=== PATIENT | female | born 1995 | race Caucasian/White ===

== ENCOUNTER 2016-09-10 11:11 | Emergency (ER) | payer OTHER | END 2016-09-10 12:16 | disposition home or self-care (01) | LOC: FER 11:11 | DX: S93.401A Sprain of unspecified ligament of right ankle, initial encounter (principal); Z88.6 Allergy status to analgesic agent; Z91.040 Latex allergy status; W17.2XXA Fall into hole, initial encounter; Y92.009 Unspecified place in unspecified non-institutional (private) residence as the place of occurrence of the external cause | CPT/HCPCS: 73610; 73630; 99283 ==

== ENCOUNTER 2020-06-10 09:51 | Emergency (ER) | payer OTHER ==
[~2020-06-10 09:51] MED LIST: BACTRIM DS TAB1 EACH PO; BLISOVI 24 FE1 EACH PO; ERYTHROMYCIN250 M1 PO; PREDNISONE 20MG20 MG PO; TAMIFLU 75MG CA75 MG PO
== END 2020-06-10 11:10 | disposition home or self-care (01) ==
LOC: FER 09:51
DX: U07.1 COVID-19 (principal)
CPT/HCPCS: 99283; U0002

== ENCOUNTER 2022-01-12 16:25 | Emergency (ER) | payer SELFPAY ==
[2022-01-12 17:40] LABS: CLARITY CLEAR (CLEAR); COLOR YELLOW (YELLOW); SPECIFIC GRAVITY 1.025 (1.001-1.030)
[2022-01-12 17:41] LABS: BILIRUBIN NEGATIVE (NEGATIVE); BLOOD NEGATIVE Ery/uL (NEGATIVE); GLUCOSE (U) NORMAL (NORMAL); LEUKOCYTES NEGATIVE Leu/uL (NEGATIVE); NITRITE NEGATIVE (NEGATIVE); PROTEIN NEGATIVE (NEGATIVE); pH 6.5 (5.0-9.0)
== END 2022-01-12 18:42 | disposition home or self-care (01) ==
LOC: FER 16:25
PROVIDERS: Emergency Medicine
DX: N94.6 Dysmenorrhea, unspecified (principal); Z28.310 Unvaccinated for COVID-19; Z86.2 Personal history of diseases of the blood and blood-forming organs and certain disorders involving the immune mechanism; Z88.6 Allergy status to analgesic agent; Z91.040 Latex allergy status
CPT/HCPCS: 36415; 81003; 84702; 99284